=== PATIENT | female | born 1955 | race Caucasian/White ===

== ENCOUNTER 2017-01-20 20:41 | Emergency (ER) | payer OTHER ==
[~2017-01-20] VITALS: Ht 172.7 cm; Wt 93.0 kg
--- NOTE | ~2017-01-20 | EKG ---
[address] [address] ELECTROCARDIOGRAM REPORT Name: MARIBEL BEE Room #: DEP [place] VALLEYAshvinAshvin#: [id number] Admission: 01/20/17 Attend Phys: Discharge: 01/20/17 Date of : 55 Report #: [id number] THIS REPORT FOR: //name// [facility] ED Test Date: 2017-01-20 Test Time: 20:47:44 Pat Name: MARIBEL BEE Department: Room: Gender: F [employer] Salesperson: ABRAHAN : 1955 Requested By: Kvng Dow Order Number: [id number] MD: Jacob Crawford Measurements Intervals [place] Rate: 77 P: 61 [place]: 180 QRS: 31 QRSD: 108 T: 38 QT: 415 QTc: 470 Interpretive Statements Sinus rhythm Normal tracing No previous ECG available for comparison Electronically Signed On 01-21-2017 8:21:38 [employer] by Jacob Crawford [email or web address] <ELECTRONICALLY SIGNED> By: Jacob Crawford MD, [facility] 01/21/17 0821 2047 46 Jacob Crawford MD, FACC /EPI
[~2017-01-20 20:41] MED LIST: ATELVIA35 MG PO; PROZAC 20 MG20 M1 PO
[2017-01-20] MEDS ORDERED: LIPITOR10 MG PO (20:53)
[2017-01-20] MEDS ORDERED: BINOSTO70 MG PO (20:53)
[2017-01-20] MEDS ORDERED: NEXIUM40 MG PO (20:54)
[2017-01-20] MEDS ORDERED: PROZAC20 MG PO (20:54)
[2017-01-20] MEDS ORDERED: TUMS PO (20:55)
[2017-01-20] MEDS ORDERED: COMBIPATCH 0.01 EACH TRANSDERM (20:56)
[2017-01-20] MEDS ORDERED: GLUCOSAMINE HC500 MG PO (20:56)
[2017-01-20] MEDS ORDERED: UNICOMPLEX M TA1 TA1 PO (20:57)
[2017-01-20] MEDS ORDERED: ALEVE220 MG PO (20:57)
[2017-01-20 21:30] LABS: ABSOLUTE NEUTROPHILS 4.3 thou/uL (1.4-8.2); BASOPHILS 0.7 % (0.0-2.0); EOSINOPHILS 5.1 % (0.0-3.0); HEMATOCRIT 39.2 % (37.0-47.0); LYMPHOCYTES 29.1 % (24.0-44.0); MANUAL DIFF NO; MCHC 33.2 g/dL (28.0-37.0); MCV 87.4 fL (80.0-100.0); MONOCYTES 11.6 % (1.0-8.0); PLATELET COUNT 225 thou/uL (150-400); POLYS 53.5 % (36.0-66.0); RBC 4.49 mil/uL (4.20-5.00); RDW 13.1 % (10.5-14.5); WBC 7.9 thou/uL (4.0-11.0)
[2017-01-20 21:34] LABS: ANION GAP 4 mmol/L (7-16); BUN 14 mg/dL (7-18); CALCIUM 9.2 mg/dL (8.5-10.1); CHLORIDE 108 mmol/L (98-107); CO2 29 mmol/L (21-32); CREATININE 0.7 mg/dL (0.6-1.0); GLUCOSE 98 mg/dL (74-106); POTASSIUM 3.7 mmol/L (3.5-5.1); SODIUM 141 mmol/L (136-145)
[2017-01-20 21:43] LABS: TROPONIN-I < 0.04 ng/mL (<0.06)
[2017-01-20 23:05] VITALS: BP 135/83
== END 2017-01-20 23:06 | disposition home or self-care (01) ==
LOC: ER 20:41
PROVIDERS: Emergency Medicine
DX: R07.89 Other chest pain (principal); R06.00 Dyspnea, unspecified; F32.9 Major depressive disorder, single episode, unspecified; M81.0 Age-related osteoporosis without current pathological fracture; F10.99 Alcohol use, unspecified with unspecified alcohol-induced disorder; Z88.0 Allergy status to penicillin; Z88.2 Allergy status to sulfonamides; Z88.1 Allergy status to other antibiotic agents

== ENCOUNTER → 2017-01-21 | Outpatient (CLI) | payer OTHER ==
[~2017-01-21] MED LIST changes: +ALEVE220 MG PO; +BINOSTO70 MG PO; +COMBIPATCH 0.01 EACH TRANSDERM; +GLUCOSAMINE HC500 MG PO; +LIPITOR10 MG PO; +NEXIUM40 MG PO; +PROZAC20 MG PO; +TUMS PO; +UNICOMPLEX M TA1 TA1 PO
== END ==
LOC: RAD
DX: Z12.31 Encounter for screening mammogram for malignant neoplasm of breast (principal)

== ENCOUNTER 2017-03-30 21:54 | Emergency (ER) | payer OTHER ==
[~2017-03-30] VITALS: Ht 172.7 cm; Wt 89.8 kg
[2017-03-30] MEDS ORDERED: MOBIC15 MG PO (22:16)
[2017-03-30] MEDS ORDERED: NORCO 5-325 TA1 EACH PO (22:34)
== END 2017-03-30 22:45 | disposition home or self-care (01) ==
LOC: ER 21:54
DX: S46.912A Strain of unspecified muscle, fascia and tendon at shoulder and upper arm level, left arm, initial encounter (principal); Z88.0 Allergy status to penicillin; Z88.2 Allergy status to sulfonamides; Z91.040 Latex allergy status; W18.30XA Fall on same level, unspecified, initial encounter; Y93.89 Activity, other specified; Y92.89 Other specified places as the place of occurrence of the external cause; Y99.8 Other external cause status

== ENCOUNTER → 2018-01-21 | Outpatient (CLI) | payer OTHER ==
[~2018-01-21] MED LIST changes: +MOBIC15 MG PO; +NORCO 5-325 TA1 EACH PO
== END ==
LOC: RAD 07:52
DX: Z12.31 Encounter for screening mammogram for malignant neoplasm of breast (principal)

== ENCOUNTER 2018-02-20 17:19 | Emergency (ER) | payer OTHER ==
[~2018-02-20] VITALS: Ht 170.2 cm; Wt 95.3 kg
[2018-02-20] MEDS ORDERED: NORFLEX100 MG PO (18:40)
[2018-02-20] MEDS ORDERED: MEDROLDOSEPACK PO (18:40)
[2018-02-20] MEDS ORDERED: HYDROCODONE-AP1 EAC6 PO (18:40)
[2018-02-20 18:52] VITALS: BP 121/73
== END 2018-02-20 18:55 | disposition home or self-care (01) ==
LOC: ER 17:19
DX: M25.551 Pain in right hip (principal); M81.0 Age-related osteoporosis without current pathological fracture; F32.9 Major depressive disorder, single episode, unspecified; Z91.040 Latex allergy status; Z88.0 Allergy status to penicillin; Z88.2 Allergy status to sulfonamides; Z88.8 Allergy status to other drugs, medicaments and biological substances

== ENCOUNTER → 2019-01-25 | Outpatient (CLI) | payer OTHER ==
[~2019-01-25] MED LIST changes: +HYDROCODONE-AP1 EAC6 PO; +MEDROLDOSEPACK PO; +NORFLEX100 MG PO
== END ==
LOC: RAD 09:28
DX: Z12.31 Encounter for screening mammogram for malignant neoplasm of breast (principal)

== ENCOUNTER → 2020-02-01 | Outpatient (CLI) | payer OTHER | LOC: RAD 13:19 | PROVIDERS: ATTEND Internal Medicine | DX: Z12.31 Encounter for screening mammogram for malignant neoplasm of breast (principal); N63.21 Unspecified lump in the left breast, upper outer quadrant; N63.10 Unspecified lump in the right breast, unspecified quadrant ==

== ENCOUNTER → 2020-02-07 | Outpatient (CLI) | payer OTHER | LOC: ULTRA 09:21 | PROVIDERS: ATTEND Internal Medicine | DX: R92.2 Inconclusive mammogram (principal) ==

== ENCOUNTER → 2020-08-20 | Outpatient (CLI) | payer OTHER | LOC: BC 09:55 | PROVIDERS: ATTEND Internal Medicine | DX: N64.89 Other specified disorders of breast (principal) ==

== ENCOUNTER → 2021-03-28 | Outpatient (CLI) | payer OTHER | LOC: BC 12:51 | PROVIDERS: ATTEND Internal Medicine | DX: R92.1 Mammographic calcification found on diagnostic imaging of breast (principal) ==